=== PATIENT | female | born 1995 | race Caucasian/White ===

== ENCOUNTER 2017-10-05 14:08 | Emergency (ER) | payer OTHER ==
[2017-10-05 14:17] VITALS: TEMP 36.5; Ht 167.6 cm
[2017-10-05] MEDS ORDERED: IBUPROFEN 600 MG TAB PO STA (14:23)
--- NOTE | 2017-10-05 14:39 | EMERGENCY ROOM VISIT NOTE ---
History First contact with patient: 14:20 Chief Complaint: FOOT PAIN Stated Complaint: FORK THROUGH BOOT, SOME NUMBNESS History of Present Illness The patient is a 22 year old female who presents to the Emergency Room with complaints of the pitchfork through her left foot that occurred approximately 1: 30 PM today. 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 She believes the prong may have gone through some of her toes, but she is unsure. She does have increased pain when she moves the toes or the metal prong. She states she has some mild throbbing pain, constant, worse with moving the toes, 3/10. She did not take any medications for pain. She states her toes feel a little bit numb, but she is able to feel them when she moves the toes. She denies any previous injuries to this foot. The prong was sawed off from the rest of the pitchfork prior to the patient arriving here. Patient denies any ankle pain, other injuries, dizziness, syncope. Her tetanus is up-to-date. She is not a smoker. Review of Systems A complete 10 point review of systems was reviewed with the patient with pertinent positives and negatives as per history of present illness. All else were negative. Social History Smoking Status: Never Smoker Alcohol Use: none Drug Use: none Current/Historical Medications Scheduled Ciprofloxacin Hcl (Cipro), 500 MG PO BID Clindamycin Hcl (Cleocin), 300 MG PO QID Allergies Penicillin/amoxicillin - causes a rash Physical Exam Vital Signs Date Time Temp Pulse Resp B/P (MAP) Pulse Ox O2 Delivery O2 Flow Rate FiO2 10/05/17 16:47 62 18 122/76 98 10/05/17 14:17 36.5 109 20 129/91 99 Room Air Physical Exam CONSTITUTIONAL: Pleasant and cooperative. No acute distress, but obviously uncomfortable and pain. Well appearing and well nourished. HEENT: Normocephalic, atraumatic. Pupils equal, round and reactive to light, EOMI. TMs normal. Pharynx normal. Moist because membranes. NECK: Supple, full active range of motion without discomfort. RESPIRATORY: Clear to auscultation bilaterally with no wheezing, crackles, rhonchi or stridor. Equal expansion bilaterally. CARDIOVASCULAR: Regular rate and rhythm with no murmurs, rubs or gallops. Normal peripheral perfusion. No edema. GASTROINTESTINAL: Soft, nontender, nondistended. No palpable masses or HSM. Bowel sounds present in all quadrants. MUSCULOSKELETAL: There is an approximately 10 inch metal prong extending through the distal portion of the patient's left boot. Tender to palpation and increased pain with manipulation of the metal prong. Full range of motion of all joints without discomfort. INTEGUMENTARY: No rash or other significant dermatologic conditions noted. NEUROLOGIC: Alert and oriented X 4 with normal affect. Normal speech. No focal neurologic deficits noted. Medical Decision & Procedures ER Provider Diagnostic Interpretation: L FOOT MIN 3 VIEWS ROUTINE CLINICAL HISTORY: eval fx 2nd toe trauma COMPARISON: 10/05/2017 DISCUSSION: Interval removal of the metallic foreign body. No well-defined fracture base of the current examination. No radiopaque densities have been removed. There is no evidence for soft tissue swelling. IMPRESSION: Interval removal of the metallic foreign body and radiopaque densities producing noted throughout. No well-defined fracture based on these images. Medications Administered Medications (Trade) Dose Ordered Sig/Lux Route Start Time Stop Time Status Last Admin Dose Admin Ibuprofen (Motrin Tab) 600 mg NOW STAT PO 10/05/17 14:23 10/05/17 14:26 DC 10/05/17 14:32 600 MG Ciprofloxacin (Cipro Tab) 500 mg NOW STAT PO 10/05/17 16:20 10/05/17 16:22 DC 10/05/17 16:38 500 MG Clindamycin HCl (Cleocin Cap) 300 mg NOW ONCE PO 10/05/17 16:30 10/05/17 16:31 DC 10/05/17 16:38 300 MG Procedure Foreign Body Removal, left 2nd toe I obtained verbal consent from the patient to perform the procedure. Using sterile technique, the wound was irrigated copiously with saline and then cleaned with Betadine. Using 1% buffered lidocaine, a digital block was performed at the base of the 2nd toe. After anesthesia achieved, using a #11 blade, a 2cm incision was made along the base of the toe in line with the metal prong, which was easily removed. The base of the wound was copiously irrigated with saline. The wound was explored and there was no remaining foreign material , no exposed tendon, blood vessel, or nerves. The wound was then closed with 5 simple interrupted sutures of 5-0 nylon. The wound edges are well approximated , with hemostasis achieved. Patient tolerated the procedure well with no known complications. The wound was dressed with bacitracin and a sterile dressing. Medical Decision CC: Patient presenting with complaint of pitch fork prong through left foot Differential Diagnosis: Includes, but not limited to retained foreign body, abrasion, contusion, open fracture, tendon injury, among others. Medication Reconciliation: I attest that I have personally reviewed the patient' s current medication list. Vital signs review: I reviewed the patient's vital signs and interpret them as follows: T: Afebrile; BP: Hypertensive; HR: Tachycardic; RR: Within normal limits; Pulse Ox: Within normal limits on room air. Blood pressure screening: The patient was found to have an elevated blood pressure, this was felt to be situational secondary to pain. Summary: Patient was evaluated at bedside, history and physical exam performed. Patient alert and oriented, no acute distress, resting calmly in the stretcher. There is a large metal prong extending through the distal portion of the patient 's boot. There is increased pain with manipulation of the prong, the patient is unable to withdraw her foot. She does seem to have feeling in the distal toes to palpation through the boot. Orders were placed at bedside for x-ray to evaluate for position of metal prong , possible fracture. Patient discussed with Dr. Miller, who agrees with my assessment and plan. X-ray of the foot is unclear as to position of the metal prong, however does not appear to go through bone or have caused any acute fracture. Patient's boot and sock were cut off with trauma breanna, exposing the foot and metal prong. The metal prong is noted to go between the great toe and the second toe, piercing the fat pad of the second toe. The remaining toes are also unharmed. Sensation intact in the distal second toe, brisk cap refill. She is able to flex and extend the toe gently. Metal prong was easily removed, see procedure note. Repeat x-ray of the foot shows no fracture. Discussion with the ED pharmacist, recommendations for ciprofloxacin and clindamycin for broad coverage of dirty wound. Patient reassessed multiple times throughout ED stay, she is much improved, reports her pain is completely gone after the digital block. Tachycardia and hypertension also resolved, suspect this was secondary to pain. Patient was updated on all results and plan for discharge home, encouraged to follow closely with the primary care provider. She was also given prescriptions for antibiotics. The wound was dressed and a post-op shoe provided for comfort. Patient was discharged home in stable condition and ambulatory. Impression Primary Impression: Retained foreign body of foot Departure Information Dispostion Home / Self-Care Condition GOOD Prescriptions Ciprofloxacin Hcl (CIPRO) 500 Mg Tab 500 MG PO BID for 5 Days, #10 TAB Prov: Kathrine Saucedo CRNP 10/05/17 Clindamycin Hcl (CLEOCIN) 300 Mg Cap 300 MG PO QID for 5 Days, #20 CAP Prov: Kathrine Saucedo CRNP 10/05/17 Referrals No Doctor, Assigned (PCP) Patient Instructions ED Laceration Foot, ED Wound Puncture Foot, [facility] Additional Instructions You were prescribed clindamycin and ciprofloxacin to be taken for 5 days. These medications are antibiotics to help prevent infection in your tell. All antibiotics have the potential to cause diarrhea, it is helpful to eat yogurt or take probiotics every day to prevent intestinal upset. Stop this medication and contact a medical provider if you were to develop any significant adverse side effects including: wheezing, shortness of breath, passing out, vomiting, or a diffuse rash. Always take antibiotics as directed and COMPLETE the ENTIRE course regardless of the improvement of your symptoms. Follow-up with your primary care provider OR return to the emergency department for suture removal in 10-12 days. Keep wound clean and dry. Do not allow any crusting or dried blood to accumulate on sutures. If this occurs, use a 1:1 solution of hydrogen peroxide/ water on a Q-tip to clean the wound. Use an antibiotic ointment for 3-4 days, then let wound dry. Ice and elevate for swelling and pain. Ibuprofen 600 mg and Tylenol 1000 mg every 6-8 hours as needed for pain. Please seek immediate medical attention for any signs of infection (increasing pain, redness, swelling, pus drainage, streaking up the foot, fever/chills). Work Instructions Return To Work: 2 days School Instructions Return To School: 1 day
--- NOTE | 2017-10-05 14:48 | DIAGNOSTIC IMAGING REPORT ---
LEFT KNEE 3 VIEWS CLINICAL HISTORY: Pitchfork through the left foot. FINDINGS: 3 views of the left foot are obtained. No prior studies are available for comparison at the time of dictation. The skeletal structures are well mineralized. The examination is performed through a shoe or boot, obscuring fine bony detail. A metallic foreign body transfixes the first 3. There is also likely fracture involving the base of the first distal phalanx. Distal phalanx and may also transfix the second distal phalanx. There is likely fracture involving the base of the first distal phalanx. The second distal phalanx is not well assessed. The remainder of the foot is normal in appearance. Numerous radiodense foreign bodies are likely external to the patient. IMPRESSION: 1. A metallic structure transfixes the first distal phalanx and possibly the second distal phalanx. 2. There is likely fracture through the base of the first distal phalanx. 3. The second distal phalanx is not well assessed. Electronically signed by: Tip Coates M.D. 10/05/2017 2:44 PM Dictated Date/Time: 10/05/2017 2:40 PM
[2017-10-05] MEDS ORDERED: LIDO/EPINEPHRINE/SOD BICARB 20 ML VIAL INFIL ONE (15:00)
--- NOTE | 2017-10-05 16:03 | DIAGNOSTIC IMAGING REPORT ---
L FOOT MIN 3 VIEWS ROUTINE CLINICAL HISTORY: eval fx 2nd toe trauma COMPARISON: 10/05/2017 DISCUSSION: Interval removal of the metallic foreign body. No well-defined fracture base of the current examination. No radiopaque densities have been removed. There is no evidence for soft tissue swelling. IMPRESSION: Interval removal of the metallic foreign body and radiopaque densities producing noted throughout. No well-defined fracture based on these images. The above report was generated using voice recognition software. It may contain grammatical, syntax or spelling errors. Electronically signed by: Ramesh Henry M.D. 10/05/2017 4:01 PM Dictated Date/Time: 10/05/2017 4:00 PM
[2017-10-05] MEDS ORDERED: CIPROFLOXACIN 500 MG TAB PO STA (16:20)
[2017-10-05] MEDS ORDERED: CLINDAMYCIN HCL 150 MG CAP PO ONE (16:30)
[2017-10-05] MEDS ORDERED: CIPR-255 PO (16:32)
[2017-10-05] MEDS ORDERED: CLIN300C2 PO (16:32)
[2017-10-05 16:47] VITALS: BP 122/76; PULSE 62; O2SAT 98
== END 2017-10-05 16:49 | disposition home or self-care (01) ==
LOC: C.EDB 14:12 → C.EDD 16:49
DX: M79.5 Residual foreign body in soft tissue (principal); Y92.89 Other specified places as the place of occurrence of the external cause; Y93.89 Activity, other specified; Y99.0 Civilian activity done for income or pay